=== PATIENT | female | born 1990 | race Caucasian/White ===

== ENCOUNTER 2019-12-02 13:29 | Emergency (ER) | payer OTHER ==
[~2019-12-02] VITALS: Ht 167.6 cm; Wt 73.3 kg
[2019-12-02 13:44] VITALS: BP 125/72
--- NOTE | 2019-12-02 14:11 | NUR ---
Pt states was snowboarding today and fell onto her R wrist, deformity noted on R lateral wrist, splint in place applied by ski molder, CMS in R UE intact.
[2019-12-02] MEDS ORDERED: HYDROcodone/APAP 5/325 TABLET ONE (15:09)
--- NOTE | 2019-12-02 15:14 | NUR ---
Pt c/o increased pain in R wrist. Discussed with Dr. Aparicio. Orders received for [place] [facility]. Pt medicated per order. Ice pack applied. Pt denies other needs.
--- NOTE | 2019-12-02 15:29 | NUR ---
EMT at bedside to appl sugar tong splint per order.
[2019-12-02] MEDS ORDERED: HYDROcodone/APAP 5/325 TABLET PO ONE (15:30)
== END 2019-12-02 16:27 | disposition home or self-care (01) ==
LOC: ED 14:50
DX: S52.571A Other intraarticular fracture of lower end of right radius, initial encounter for closed fracture (principal); V00.311A Fall from snowboard, initial encounter; Y93.23 Activity, snow (alpine) (downhill) skiing, snowboarding, sledding, tobogganing and snow tubing; Y92.89 Other specified places as the place of occurrence of the external cause; Y99.8 Other external cause status
CPT/HCPCS: 29105; 99283